=== PATIENT | male | born 1975 ===

== ENCOUNTER 2020-10-10 14:01 | Outpatient (CLI) | payer OTHER | END 2020-10-10 15:17 | disposition home or self-care (01) | LOC: OFIC 805 14:01 | PROVIDERS: ATTEND Otolaryngology Otology & Neurotology | DX: K14.6 Glossodynia (principal); D37.02 Neoplasm of uncertain behavior of tongue ==

== ENCOUNTER 2020-12-13 08:00 | Outpatient (CLI) | payer OTHER | END 2020-12-13 08:30 | disposition home or self-care (01) | LOC: PPH VACUNA 08:00 | DX: Z23 Encounter for immunization (principal) ==

== ENCOUNTER 2021-01-03 08:00 | Outpatient (CLI) | payer OTHER | END 2021-01-03 08:30 | disposition home or self-care (01) | LOC: PPH VACUNA 08:00 | DX: Z23 Encounter for immunization (principal) ==

== ENCOUNTER 2022-08-19 13:21 | Outpatient (CLI) | payer OTHER | END 2022-08-19 13:23 | disposition home or self-care (01) | LOC: TOM 13:21 | PROVIDERS: ATTEND Otolaryngology Otology & Neurotology | DX: J34.2 Deviated nasal septum (principal); J34.3 Hypertrophy of nasal turbinates ==

== ENCOUNTER 2023-06-23 11:06 | Outpatient (CLI) | payer OTHER | END 2023-06-23 11:11 | disposition home or self-care (01) | LOC: RAD 11:06 | PROVIDERS: ATTEND Internal Medicine Pulmonary Disease | DX: R05.9 Cough, unspecified (principal); J01.90 Acute sinusitis, unspecified; R09.89 Other specified symptoms and signs involving the circulatory and respiratory systems ==